=== PATIENT | female | born 1995 | race Hispanic/Latino ===

== ENCOUNTER 2024-01-13 09:29 | Emergency (ER) | payer MEDICAID, SELFPAY | END 2024-01-13 10:40 | disposition home or self-care (01) | LOC: CSHERS 09:29 | DX: S61.211A Laceration without foreign body of left index finger without damage to nail, initial encounter (principal); W26.0XXA Contact with knife, initial encounter; Y93.89 Activity, other specified | CPT/HCPCS: 12001; 99283 ==